=== PATIENT | male | born 1990 | race Caucasian/White ===

== ENCOUNTER 2024-02-09 12:01 | Inpatient (IN) ==
[2024-02-09] MEDS ORDERED: IOPAMIDOL 100 ML BOTTLE IV ONE (12:02)
[2024-02-09 13:08] LABS: Basophils # (Auto) 0.06 K/mcL (0.00-0.30); Basophils % (Auto) 0.4 % (0.0-2.0); Eosinophils # (Auto) 0.09 K/mcL (0.00-0.70); Eosinophils % (Auto) 0.6 % (0.0-7.0); Hematocrit 45.2 % (40.1-51.0); Hemoglobin 15.7 g/dL (13.7-17.5); Lymphocytes # (Auto) 2.42 K/mcL (1.50-4.80); Lymphocytes % (Auto) 15.4 % (15.5-49.0); Mean Cell Volume 88.8 fL (80.0-100.0); Mean Corpuscular HGB Conc 34.7 g/dL (31.0-36.0); Mean Platelet Volume 9.4 fL (8.8-12.5); Monocytes # (Auto) 1.79 K/mcL (0.10-0.90); Monocytes % (Auto) 11.4 % (1.0-12.0); Platelet Count 310 K/mcL (140-440); RBC 5.09 M/mcL (4.63-6.08); Red Cell Distribution Width 12.1 % (11.5-14.5); WBC 15.7 K/mcL (4.5-11.0)
[2024-02-09 13:27] LABS: ALT/SGPT 16 U/L (<40); AST/SGOT 18 U/L (<40); Albumin 4.4 gm/dL (3.2-5.2); Albumin/Globulin Ratio 1.5 (1.0-2.3); Alkaline Phosphatase 118 U/L (39-117); Blood Urea Nitrogen 12 mg/dL (6-20); Carbon Dioxide 22 mmol/L (22-30); Chloride 98 mmol/L (96-108); Glomerular Filtration Rate 117; Glucose 94 mg/dL (70-105); Potassium 3.9 mmol/L (3.3-5.1); Sodium 136 mmol/L (133-145)
[2024-02-09] MEDS: PIPERACILLIN SODIUM/TAZOBACTAM 3.375 GM in DEXTROSE 5% IN WATER 50 ML IV ONE (13:57)
[2024-02-09 14:20] LABS: Appearance,Urine Clear (Clear); Bacteria,Urine 0 /hpf (0); Bilirubin,Urine Negative (Negative); Color,Urine Yellow; Glucose,Urine (UA) Negative (Negative); Ketones,Urine 15 mg/dL (Negative); Leukocyte Esterase,Urine Negative /uL (Negative); Nitrate,Urine Negative (Negative); Protein,Urine Negative (Negative); Urine Blood Negative ery/mcL (Negative); Urine RBC 0 /hpf (0-3); Urine Squamous Epithelial Cell 0 /hpf (0-4); Urine WBC 0 /hpf (0-4)
[2024-02-09] MEDS: CIPROFLOXACIN 400 MG/200 ML BAG IV SCH (15:10)
[2024-02-09] MEDS ORDERED: METOCLOPRAMIDE 10 MG/2 ML VIAL IV PRN (15:13)
[2024-02-09] MEDS: metroNIDAZOLE 500 MG/100 ML BAG IV SCH ×2 (16:00→22:06)
[2024-02-09] MEDS: DEXTROSE 5%-LR 1,000 ML IV SCH (16:13)
[2024-02-09 16:14] LABS: Blood Urea Nitrogen 12 mg/dL (6-20); Calcium 9.1 mg/dL (8.6-10.4); Carbon Dioxide 24 mmol/L (22-30); Chloride 96 mmol/L (96-108); Glomerular Filtration Rate 112; Glucose 100 mg/dL (70-105); Potassium 3.7 mmol/L (3.3-5.1); Sodium 134 mmol/L (133-145)
[2024-02-09] MEDS: HYDROmorphone 0.5 MG/0.5 ML SYRINGE IV PRN (17:18)
[2024-02-09] MEDS: ACETAMINOPHEN 650 MG/65 ML BAG IV SCH (23:34)
[2024-02-09] MEDS: ACETAMINOPHEN 1,000 MG/100 ML BAG IV ONE (23:42)
[2024-02-10] MEDS ORDERED: ACETAMINOPHEN 650 MG/65 ML BAG IV PRN (00:14)
[2024-02-10 05:45] LABS: Hematocrit 44.6 % (40.1-51.0); Hemoglobin 14.8 g/dL (13.7-17.5); Mean Corpuscular HGB Conc 33.2 g/dL (31.0-36.0); Mean Platelet Volume 9.3 fL (8.8-12.5); Platelet Count 276 K/mcL (140-440); RBC 4.85 M/mcL (4.63-6.08); Red Cell Distribution Width 12.3 % (11.5-14.5); WBC 11.9 K/mcL (4.5-11.0)
[2024-02-10 06:23] LABS: Blood Urea Nitrogen 11 mg/dL (6-20); Calcium 8.6 mg/dL (8.6-10.4); Carbon Dioxide 27 mmol/L (22-30); Chloride 100 mmol/L (96-108); Glomerular Filtration Rate 112; Glucose 116 mg/dL (70-105); Potassium 3.8 mmol/L (3.3-5.1); Sodium 136 mmol/L (133-145)
[2024-02-11 06:08] LABS: Basophils # (Auto) 0.07 K/mcL (0.00-0.30); Basophils % (Auto) 0.8 % (0.0-2.0); Eosinophils # (Auto) 0.25 K/mcL (0.00-0.70); Eosinophils % (Auto) 2.8 % (0.0-7.0); Hematocrit 42.2 % (40.1-51.0); Hemoglobin 14.2 g/dL (13.7-17.5); Lymphocytes # (Auto) 2.15 K/mcL (1.50-4.80); Lymphocytes % (Auto) 24.1 % (15.5-49.0); Mean Cell Volume 91.7 fL (80.0-100.0); Mean Corpuscular HGB Conc 33.6 g/dL (31.0-36.0); Mean Platelet Volume 9.3 fL (8.8-12.5); Monocytes % (Auto) 12.3 % (1.0-12.0); Neutrophils % (Auto) 59.7 % (38.0-78.0); Platelet Count 286 K/mcL (140-440); WBC 8.9 K/mcL (4.5-11.0)
[2024-02-11 06:42] LABS: Blood Urea Nitrogen 10 mg/dL (6-20); Calcium 8.6 mg/dL (8.6-10.4); Carbon Dioxide 26 mmol/L (22-30); Chloride 101 mmol/L (96-108); Glomerular Filtration Rate 98; Glucose 113 mg/dL (70-105); Potassium 3.9 mmol/L (3.3-5.1); Sodium 137 mmol/L (133-145)
[2024-02-11] MEDS ORDERED: HYDROcodone/APAP 5/325MG TABLET PO PRN (11:52)
[2024-02-11] MEDS: DEXTROSE 5%-LR 1,000 ML IV SCH (13:21)
[2024-02-12 06:40] LABS: Hematocrit 40.6 % (40.1-51.0); Hemoglobin 13.8 g/dL (13.7-17.5); Mean Cell Volume 92.3 fL (80.0-100.0); Mean Platelet Volume 9.4 fL (8.8-12.5); Platelet Count 319 K/mcL (140-440); Red Cell Distribution Width 11.9 % (11.5-14.5); WBC 7.5 K/mcL (4.5-11.0)
== END 2024-02-12 11:32 | disposition home or self-care (01) | DRG 392 ==
LOC: ED 12:01 → MEDSUR 15:25
PROVIDERS: ADMIT Surgery Surgical Critical Care; ATTEND Surgery Surgical Critical Care